=== PATIENT | female | born 1985 | race American Indian/Alaskan Native ===

== ENCOUNTER 2016-09-06 17:44 | Emergency (ER) | payer OTHER ==
[2016-09-06] MEDS ORDERED: TRIPLE ANTIBIOTIC TP ONE (20:09)
[2016-09-06] MEDS ORDERED: BOOSTRIX IM ONE ×2 (20:09→20:12)
[2016-09-06] MEDS ORDERED: MOTRIN PO ONE (20:09)
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
[2016-09-06] MEDS: NORCO 5/325 PO ONE (20:26)
--- NOTE | 2016-09-06 21:14 | XRay Report ---
FINAL REPORT PROCEDURE: XR ANKLE 3 RT TECHNIQUE: Right ankle radiographs, AP, lateral, and oblique views. CPT 03538 HISTORY: LATERAL RIGHT ANKLE PAIN COMPARISON: No prior studies are available for comparison. FINDINGS: Fracture (s) and/or Dislocation(s): None . Alignment: Normal . Joint space(s): Normal . Soft tissues: Normal . Bone mineralization: Normal . Foreign bodies: None . Calcaneal spurring: None . IMPRESSION: Normal Examination .
--- NOTE | 2016-09-06 21:29 | XRay Report ---
FINAL REPORT PROCEDURE: XR FOOT 3 RT TECHNIQUE: Right foot radiographs, AP, lateral, and oblique views. CPT 49148 HISTORY: INJURY COMPARISON: No prior studies are available for comparison. FINDINGS: Fracture (s) and/or Dislocation(s): None . Alignment: Normal . Joint space(s): Normal . Soft tissues: Normal . Bone mineralization: Normal . Foreign bodies: None . Calcaneal spurring: None . IMPRESSION: Normal Examination
[2016-09-06 23:52] VITALS: BP 117/69
[2016-09-07] MEDS: NORCO 5/325 PO ONE (00:35)
== END 2016-09-06 23:54 | disposition home or self-care (01) ==
LOC: ED 17:44
DX: S01.512A Laceration without foreign body of oral cavity, initial encounter (principal); S93.401A Sprain of unspecified ligament of right ankle, initial encounter; S80.01XA Contusion of right knee, initial encounter; S90.31XA Contusion of right foot, initial encounter; S50.811A Abrasion of right forearm, initial encounter; M79.632 Pain in left forearm; V49.49XA Driver injured in collision with other motor vehicles in traffic accident, initial encounter; W22.10XA Striking against or struck by unspecified automobile airbag, initial encounter; Y93.89 Activity, other specified; Y99.9 Unspecified external cause status; Y92.410 Unspecified street and highway as the place of occurrence of the external cause
CPT/HCPCS: 90715; A6250